=== PATIENT | male | born 1940 | race Caucasian/White ===

== ENCOUNTER → 2018-07-07 | Outpatient (CLI) | payer OTHER | END | disposition home or self-care (01) | LOC: PCVCCLINIC 15:12 | PROVIDERS: ATTEND Internal Medicine | DX: R07.9 Chest pain, unspecified (principal); I10 Essential (primary) hypertension; E78.5 Hyperlipidemia, unspecified; G62.9 Polyneuropathy, unspecified | CPT/HCPCS: 93005; G0463 ==

== ENCOUNTER → 2018-07-26 | Outpatient (CLI) | payer OTHER ==
[~2018-07-26] MED LIST: REGADENOSON 0.4 MG/5 ML DISP.SYRIN. IV ONE
--- NOTE | 2018-07-26 08:49 | PCVCIMAG ---
APPROVED REPORT Study performed: 07/26/2018 07:37:01 EXAM: Comprehensive 2D, Doppler, and color-flow Echocardiogram Patient Location: Echo lab Status: routine BSA: 1.83 HR: 63 bpmBP: 126/80 mmHg Rhythm: NSR Other Information Study Quality: Adequate Risk Factors: Cardiac Risk Factors: HTN Indications Chest Pain 2D Dimensions IVSd: 10.76 (7-11mm) LVDd: 48.01 mm PWd: 9.70 (7-11mm) LVDs: 34.88 (25-40mm) Left Atrium: 40.62 (27-40mm) Aortic Root: 30.13 mm LV Single Plane 4CH: 54.00 % LV Single Plane 2CH: 56.46 % Biplane EF: 55.3 % Volumes Left Atrial Volume (Systole) Single Plane 4CH: 58.87 mLSingle Plane 2CH: 74.67 mL LA ESV Index: 38.00 mL/m2 Aortic Valve AoV Peak Yonatan.: 1.44 m/s AO Peak Gr.: 8.24 mmHgLVOT Max P.87 mmHg LVOT Max V: 0.98 m/s Mitral Valve E/A Ratio: 1.7 MV Decel. Time: 178.36 ms MV E Max Yonatan.: 0.70 m/s MV A Yonatan.: 0.42 m/s IVRT: 128.03 ms Pulmonary Valve PV Peak Yonatan.: 0.99 m/sPV Peak Gr.: 3.95 mmHg Pulmonary Vein P Vein S: 0.34 m/sP Vein A: 0.42 m/s P Vein D: 0.41 m/sP Vein A Dur.: 121.1 msec P Vein S/D Ratio: 0.83 Tricuspid Valve TR Peak Yontaan.: 2.57 m/s TR Peak Gr.: 26.33 mmHg TV Vmax: 0.45 m/s Left Ventricle The left ventricle is normal size. There is normal LV segmental wall motion. There is normal left ventricular wall thickness. Left ventricular systolic function is normal. The left ventricular ejection fraction is within the normal range. LVEF is 55%. Grade I - abnormal relaxation pattern. Right Ventricle The right ventricle is normal size. The right ventricular systolic function is normal. Atria Left atrium is mildly dilated. The right atrium size is normal. Aortic Valve The aortic valve is normal in structure. No aortic regurgitation is present. There is no aortic valvular stenosis. Mitral Valve The mitral valve is normal in structure. There is no mitral valve regurgitation noted. No evidence of mitral valve stenosis. Tricuspid Valve The tricuspid valve is normal in structure. Mild tricuspid regurgitation with PAP of 33 mmHg. Pulmonic Valve The pulmonary valve is normal in structure. Mild to moderate pulmonic regurgitation. Great Vessels The aortic root is normal in size. IVC is normal in size and collapses >50% with inspiration. Pericardium There is no pericardial effusion. There is no pleural effusion. <Conclusion> The left ventricle is normal size. LVEF is 55%. Left atrium is mildly dilated. The aortic valve is normal in structure. The mitral valve is normal in structure. The pulmonary valve is normal in structure. Mild to moderate pulmonic regurgitation. There is no pericardial effusion. There is no pleural effusion.
--- NOTE | 2018-07-27 11:23 | PCVCIMAG ---
APPROVED REPORT Imaging Protocol: Rest Tc-99m/Stress Tc-99m 1 day Study performed: 07/26/2018 08:45:41 Indication: Chest pain, Palpitations Patient Location: Out-Patient Stress Nurse: Arti East RN, BALDEMAR Del Castillo Tech:Billy Nunez NMARAMISB Ht: 5 ft 7 in Wt: 158 lbs BSA: 1.83 m2 HR: 74 bpm BP: 137/73 mmHg BMI: 24.7 Rhythm: Sinus Rhythm, T Wave Abnormality Medical History Medical History: Age, Hyperlipidemia, HTN Medications: Norvasc, Lisinopril, Metoprolol, Simvastatin Allergies: No known drug allergies Physical Disabilities: Feet Meds Held (24 hrs): Metoprolol Resting Data Rest SPECT myocardial perfusion imaging was performed in supine position 45 minutes following the intravenous injection of 11.5 mCi of Tc-99m Sestamibi. Time of rest injection: 829 Date: 07/26/2018 Administration Route: IV Administration Site: Right Hand Pharmacologic Stress Pharmacologic stress test was performed by injecting Regadenoson 0.4 mg IV push over 10-15 seconds immediately followed by the intravenous injection of 34.2 mCi of Tc-99m Sestamibi. Time of stress injection: 944 Date: 07/26/2018 Administration Route: IV Administration Site: Right Hand Gated Stress SPECT was performed 45 minutes after stress injection. The images were gated to evaluate regional wall motion and calculate left ventricular ejection fraction. Stress Test Details Stress Test: Pharmacologic stress was paired with low level exercise. Reason for pharmacologic stress test: Foot issues. HRMax Heart Rate (APMHR): 144 bpm Resting HR: 74 bpmTarget HR (85% APMHR): 122 bpm Max HR Achieved: 122 bpm % of APMHR: 84 Recovery HR: 86 bpm BP Resting BP: 137/73 mmHg Max BP: 110/84 mmHg Recovery BP: 132/70 mmHg ECG Resting ECG: Sinus Rhythm, nonspecific T abnormalities Stress ECG: Sinus Tachycardia, nonspecific T abnormalities Arrhythmia: None Recovery ECG: Sinus Rhythm, nonspecific T abnormalities Clinical Reason for Termination: Completed protocol Stress Symptoms: Abdominal Discomfort, Dyspnea Exercise duration: 4.0 min sec Symptoms resolved with caffeine. Stress ECG Conclusion 1. Adequate response intravenous Lexiscan 2. Inadequate heart rate for ECG diagnosis Study Data Post stress, the left ventricular ejection was 66%.. SSS: 0 SRS: 0 SDS: 0 TID = 0.91. Perfusion There is a large area of moderately reduced uptake in the entire segment of the inferior wall which is seen on the stress images as well as the resting images. This area thickens and moves normally and is most consistent with attenuation artifact. Nuclear Conclusion ECG Findings: non-diagnostic Clinical Findings: negative for ischemia Nuclear Findings: negative for ischemia Exercise Capacity: not assessed Left Ventricular Function: normal 1. Low risk study Interpreted by: Salomon Bone MD Electronically Approved: 07/27/2018 11:21:09 <Conclusion> 1. Adequate response intravenous Lexiscan 2. Inadequate heart rate for ECG diagnosis
== END | disposition home or self-care (01) ==
LOC: PCVCIMAG 13:38
PROVIDERS: ATTEND Internal Medicine
DX: I37.1 Nonrheumatic pulmonary valve insufficiency (principal); R07.9 Chest pain, unspecified; R00.2 Palpitations; I10 Essential (primary) hypertension; E78.5 Hyperlipidemia, unspecified
CPT/HCPCS: 78452; 93017; 93306; A9500; J2785